=== PATIENT | female | born 1985 | race Caucasian/White ===

== ENCOUNTER 2020-01-04 18:32 | Emergency (ER) | payer OTHER, SELFPAY ==
--- NOTE | ~2020-01-04 | XR_ITS ---
EXAMINATION: XR foot RT min 3V DATE: 01/04/2020 20:03 INDICATION: Pain at the lateral right midfoot post injury 2 weeks prior TECHNIQUE: Dorsoplantar, two oblique and lateral views of the right foot were obtained. COMPARISON: None. FINDINGS: Alignment is normal. No fracture. Joint spaces are normal. Small Achilles calcaneal spur. Soft tissue s are unremarkable. IMPRESSION: 1. No acute osseous abnormality. Reviewed, dictated and finalized at location [facility]. [facility]
[2020-01-04 19:31] VITALS: BP 123/72; PULSE 85; RESP 16; TEMP 36.9; O2SAT 100
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
== END 2020-01-04 20:32 | disposition home or self-care (01) ==
PROVIDERS: Emergency Provider Nurse Practitioner Family
DX: S96.911A Strain of unspecified muscle and tendon at ankle and foot level, right foot, initial encounter (principal); X58.XXXA Exposure to other specified factors, initial encounter; J45.909 Unspecified asthma, uncomplicated
CPT/HCPCS: 73630; 99213; G0463

== ENCOUNTER 2020-09-09 19:35 | Emergency (ER) | payer OTHER, SELFPAY ==
[2020-09-09 19:39] VITALS: BP 144/75; PULSE 114; RESP 20; TEMP 37.4; O2SAT 98
--- NOTE | 2020-09-09 19:45 | ED.LOWEXIN ---
HPI - Extremity Injury (Lower) General Chief Complaint: Extremity Injury, Lower Stated Complaint: right foot big and middle toe cut Time Seen by Provider: 09/09/20 19:45 Source: patient and RN notes reviewed Mode of arrival: ambulatory Limitations: no limitations History of Present Illness HPI Narrative: 34 year old female presents to [facility] care with complaints of injury to her right foot within the past 30 minutes. Patient states that she was getting her children out of the car for trick or treating and stepped out of her car barefooted and stepped onto a stepping stone causing laceration to her right great toe and 2nd toe of her right foot. Patient states that there was some bleeding and discomfort, did not attempt to examine her foot, cleanse area or apply dressing of any kind to area.Patient has no acute active bleeding from site at this time. Patient states that her tetanus is up to date. MD complaint: foot injury Onset (ago): hour(s) (within past 30 minutes) Injury: Right: toes (1st and 2nd toes) Type of Injury: laceration (superficial) Place: street/outdoors Severity: mild Severity scale (1-10): 6 Relieving factors: rest Exacerbating factors: weight bearing and movement Context: other (stepped on stepping stone) Other symptoms: none Related Data Home Medications Medication Instructions Recorded Confirmed albuterol sulfate 1 inh INHALATION QID PRN 01/04/20 01/04/20 montelukast [Singulair] 10 mg PO HS 01/04/20 01/04/20 fluticasone propion-salmeterol INHALATION 09/09/20 [Advair Diskus] Allergies Allergy/AdvReac Type Severity Reaction Status Date / Time codeine Allergy Intermediate Hives / Verified 09/26/18 16:25 Red Face Review of Systems Review of Systems: Narrative: CONSTITUTIONAL: Denies fever, chills, or sweats. EYES: Denies visual changes, redness, or discharge. ENT: Denies rhinorrhea, congestion, sore throat, or otalgia. CARDIOVASCULAR: Denies chest pain, palpitations, or edema. RESPIRATORY: Denies cough or dyspnea. GASTROINTESTINAL: Denies abdominal pain, nausea, vomiting, or diarrhea. GENITOURINARY: Denies dysuria or hematuria. SKIN: Denies rash or itching.superficial lacerations to right big and 2nd toe at PIP plantar region. MUSCULOSKELETAL: Denies back pain, joint pain, or myalgia. NEUROLOGIC: Denies headache, numbness, or weakness. PSYCHIATRIC: Positive for anxiety or depression. All systems reviewed & are unremarkable except as noted in HPI and below PMFSH Past Medical History Medical History (Updated 09/12/20 @ 09:16 by Juliana Duran NP) Anxiety Asthma Surgical History Surgical History (Updated 09/09/20 @ 19:54 by Juliana Duran NP) Hx of appendectomy Hx of cholecystectomy Social History Social History (Updated 09/12/20 @ 09:03 by Juliana Duran NP) Smoking packs per day: 1 Smoking cigarettes per day: 20.0 Years smoked: 10 Smoking pack-years: 10.00 Smoking status: Former smoker Smoking end date: 11/10/14 Living arrangements: with family Gender identity (if verbalized by the patient): Female Comments At time of signature, agree with nursing past medical, surgical, social history. There is no relevant family history pertinent to the presenting complaint Exam Narrative: Exam Narrative: GENERAL: Well-appearing, well-nourished, and in no acute distress. HEAD: Normocephalic, atraumatic. EYES: PERRLA and EOMI. ENT: Nares clear, no rhinorrhea or epistaxis. Mucous membranes moist. NECK: Supple.no lymphadenopathy CHEST: Clear to auscultation. No respiratory distress.SAO2 98% on room air HEART: Regular rate and rhythm. No murmur heard. Normal peripheral pulses. ABDOMEN: Soft, nontender, nondistended, normal active bowel sounds. EXTREMITIES: Normal range of motion. No edema. SKIN: Warm, dry, no rash.superficial lacerations to plantar regions of right great toe and 2nd toe at PIP area, no acute bleeding noted at this time. Wounds cleansed with [employer] and
[2020-09-09 19:48] VITALS: BP 144/75; PULSE 114; RESP 20; TEMP 37.4; O2SAT 98
== END 2020-09-09 19:58 | disposition home or self-care (01) ==
PROVIDERS: Emergency Provider Registered Nurse; PCP Family Medicine
DX: S91.111A Laceration without foreign body of right great toe without damage to nail, initial encounter (principal); S91.114A Laceration without foreign body of right lesser toe(s) without damage to nail, initial encounter; W22.8XXA Striking against or struck by other objects, initial encounter; J45.909 Unspecified asthma, uncomplicated; F17.210 Nicotine dependence, cigarettes, uncomplicated
CPT/HCPCS: 99213; G0463

== ENCOUNTER 2024-01-24 14:39 | Emergency (ER) | payer BC, SELFPAY ==
--- NOTE | ~2024-01-24 | XR_ITS ---
EXAM: XR hand LT min 3V, XR wrist LT min 3V DATE: 01/24/2024 15:21 (accession [id number]), 01/24/2024 15:20 (accession [id number]) HISTORY: NKI,DORSAL/LAT RADIAL PAIN . COMPARISON: None available. FINDINGS: Normal mineralization. No fracture or dislocation. No lytic or blastic lesion. Joint space s are maintained. No erosion or periosteal change. Soft tissues within normal limits. IMPRESSION: No acute osseous finding in the left hand or left wrist. Reviewed, dictated and finalized at location K. IMPRESSION: No acute osseous finding in the left hand or left wrist.
[2024-01-24 14:48] VITALS: BP 112/72; PULSE 86; RESP 16; TEMP 36.6; O2SAT 97
--- NOTE | 2024-01-24 15:04 | ED.GENADULT ---
HPI - General Adult General Chief complaint: Extremity Injury, Upper Stated complaint: Left Wrist Pain Time Seen by Provider: 01/24/24 15:04 Source: patient, RN notes reviewed and old records reviewed Mode of arrival: ambulatory Limitations: no limitations History of Present Illness HPI narrative: 38-year-old female presents to [facility] with left wrist pain for 6 weeks. Patient endorses that she is 4 weeks and that two weeks prior to delivery she fell out of bed multiple times while having nightmares. Patient recalls falling onto left wrist at time but did not seek treatment. Patient has attempted to treat at home with Tylenol, compression rest with relief. Patient states pain increases activity, especially when picking up her . Patient denies numbness. Patient endorses tingling left digit during neuro exam. Pt has slow but full ROM to left wrist and all digits. No obvious deformity, edema, erythema. Related Data Home Medications Medication Instructions Recorded Confirmed albuterol sulfate 90 mcg/actuation 1 inh inhalation QID PRN Shortness 01/04/20 01/04/20 aerosol inhaler Of Breath Or Wheezing montelukast 10 mg tablet 10 mg PO HS 01/04/20 01/04/20 (Singulair) fluticasone 100 mcg-salmeterol 50 inhalation 09/09/20 mcg/dose blistr powdr for inhalation (Advair Diskus) cetirizine 10 mg tablet mg 01/24/24 cholecalciferol (vitamin D3) 50 01/24/24 01/24/24 mcg (2,000 unit) tablet vit no.95-ferrous tablet PO 01/24/24 fumarate 28 mg-folic acid 800 mcg tablet () Allergies Allergy/AdvReac Type Severity Reaction Status Date / Time codeine Allergy Intermediate Hives / Verified 01/24/24 15:00 Red Face sulfamethoxazole Allergy Fever Verified 01/24/24 15:00 [From Bactrim] trimethoprim [From Bactrim] Allergy Fever Verified 01/24/24 15:00 Review of Systems Review of Systems: All systems reviewed & are unremarkable except as noted in HPI and below Constitutional: Constitutional: Reports no additional constitutional complaints Eyes: Eyes: Reports no additional eye complaints ENT: Reports system reviewed and no additional complaints, except as documented Cardiovascular: Cardiovascular: Reports no additional cardiovascular complaints, Denies chest pain and Denies dyspnea Respiratory: Respiratory: Reports no additional respiratory complaints, Denies cough and Denies dyspnea Musculoskeletal: Musculoskeletal: Reports arthralgias ( left wrist) and Reports numbness Neurologic: Reports system reviewed and no additional complaints, except as documented Psychiatric: Psychiatric: Reports no additional psychiatric complaints PMFSH Past Medical History Medical History (Updated 01/24/24 @ 15:20 by Neeta Driver APRN) Anxiety Asthma Surgical History Surgical History (System 09/12/20 @ 12:29 by Margarita Diez) Hx of appendectomy Hx of cholecystectomy Social History Social History (System 09/12/20 @ 12:29 by Margarita Diez) Smoking packs per day: 1 Smoking cigarettes per day: 20.0 Years smoked: 10 Smoking pack-years: 10.00 Smoking status: Former smoker Smoking end date: 11/10/14 Living arrangements: with family Gender identity (if verbalized by the patient): Female Comments At the time of my signature, I reviewed and agree with the nursing past medical, surgical, social, and family history. There is no relevant family history pertinent to the patient complaint. Exam Const: General: cooperative, healthy appearing, comfortable, no acute distress, alert and well nourished Nutritional Appearance: well nourished Orientation/consciousness: patient oriented x3 Limitations: no limitations HENMT: Head: normal to inspection Ears: external ears normal Face/Nose/Sinus: Normal external nose present, Normal nares present, normal facial exam, No erythema and No edema Face and sinus: normal facial exam, no erythema and no edema
== END 2024-01-24 16:10 | disposition home or self-care (01) ==
PROVIDERS: Emergency Provider Nurse Practitioner Family; PCP Family Medicine
DX: O9A.23 Injury, poisoning and certain other consequences of external causes complicating the puerperium (principal); S63.502A Unspecified sprain of left wrist, initial encounter; S66.912A Strain of unspecified muscle, fascia and tendon at wrist and hand level, left hand, initial encounter; W06.XXXA Fall from bed, initial encounter; O99.53 Diseases of the respiratory system complicating the puerperium; J45.909 Unspecified asthma, uncomplicated; Z87.891 Personal history of nicotine dependence
CPT/HCPCS: 73110; 73130; 99203; G0463